=== PATIENT | male | born 2000 | race Caucasian/White ===

== ENCOUNTER 2020-07-22 18:52 | Emergency (ER) | payer OTHER ==
[~2020-07-22] VITALS: Ht 177.8 cm; Wt 59.0 kg
[2020-07-22 18:58] VITALS: BP 125/71
--- NOTE | 2020-07-22 19:02 | NUR ---
PATIENT AMBULATED TO [facility].
[2020-07-22] MEDS ORDERED: LIDOCAINE MPF 1% 5 ML ONE (19:11)
[2020-07-22] MEDS ORDERED: BACITRACIN OINT 500 UNITS/GM PKT TP ONE ×2 (19:46→19:50)
--- NOTE | 2020-07-22 20:30 | NUR ---
PT ASSESSMENT COMPLETED BY MILTON CUELLO , NO NURSING INTERVENTIONS NEEDED AT THIS TIME.
--- NOTE | 2020-07-22 20:35 | NUR ---
SPLINT AND WOUND CARE ADMINISTERED BY EMT.
[2020-07-22 20:43] VITALS: BP 125/71
--- NOTE | 2020-07-22 20:43 | NUR ---
Patient discharged with v/s stable. Written and verbal after care instructions given and explained. Patient alert, oriented and verbalized understanding of instructions. Ambulatory with steady gait. All questions addressed prior to discharge. ID band removed. Patient advised to follow up with PMD. Rx of IBUPROFEN & BACITRACIN given. Patient educated on indication of medication including possible reaction and side effects. Opportunity to ask questions provided and answered.
== END 2020-07-22 20:43 | disposition home or self-care (01) ==
LOC: MED 18:52
DX: S61.215A Laceration without foreign body of left ring finger without damage to nail, initial encounter (principal); S60.411A Abrasion of left index finger, initial encounter; X58.XXXA Exposure to other specified factors, initial encounter; Y93.89 Activity, other specified; Y92.89 Other specified places as the place of occurrence of the external cause; Y99.8 Other external cause status
CPT/HCPCS: 12001; 99283; J2001

== ENCOUNTER 2020-07-24 10:07 | Emergency (ER) | payer OTHER ==
[~2020-07-24] VITALS: Ht 177.8 cm; Wt 59.0 kg
[2020-07-24 10:09] VITALS: BP 127/74
--- NOTE | 2020-07-24 10:13 | NUR ---
Patient ambulated to bed 2. RN evaluating patient at bedside.
--- NOTE | 2020-07-24 10:24 | NUR ---
19 YEAR OLD MALE PRESENTS TO ER FOR WOUND CHECK TO LEFT MIDDLE FINGER AFTER CUTTING IT WITH GLASS AND NEEDS SUTURE REMOVE. PT DENIES INCREASED PAIN OR FEVER. PT AOX4, BREATHING EVEN AND UNLABORED, SKIN WARM AND DRY. BED IN LOWEST POSITION, LOCKED, BED RAIL UPX1. PMH - DENIES ALLERGIES - NKA
--- NOTE | 2020-07-24 10:30 | NUR ---
Dr. Chaney is evaluating the patient at bedside.
[2020-07-24] MEDS ORDERED: BACITRACIN OINT 500 UNITS/GM PKT TP ONE (12:05)
[2020-07-24 12:15] VITALS: BP 127/74
--- NOTE | 2020-07-24 12:16 | NUR ---
Patient discharged with v/s stable. Written and verbal after care instructions about wound check given and explained. Patient verbalized understanding. Ambulatory with steady gait. All questions addressed prior to discharge. Advised to follow up with PMD.
== END 2020-07-24 12:16 | disposition home or self-care (01) ==
LOC: MED 10:07
DX: S61.213D Laceration without foreign body of left middle finger without damage to nail, subsequent encounter (principal); X58.XXXD Exposure to other specified factors, subsequent encounter
CPT/HCPCS: 99282

== ENCOUNTER 2020-07-31 09:13 | Emergency (ER) | payer OTHER ==
[~2020-07-31] VITALS: Ht 177.8 cm; Wt 75.3 kg
[2020-07-31 09:21] VITALS: BP 118/67
--- NOTE | 2020-07-31 09:22 | NUR ---
Patient ambulated to chair A. RN evaluating patient.
--- NOTE | 2020-07-31 09:28 | NUR ---
Dr. Merchant is evaluating the patient in chair A.
--- NOTE | 2020-07-31 09:54 | NUR ---
applied dressing to left 4th digit without any issues
--- NOTE | 2020-07-31 10:03 | NUR ---
Patient discharged with v/s stable. Written and verbal after care instructions given and explained. Patient verbalized understanding. Ambulatory with steady gait. All questions addressed prior to discharge. Advised to follow up with PMD. No nursing care provided in our ER.
== END 2020-07-31 10:03 | disposition home or self-care (01) ==
LOC: MED 09:13
DX: S61.215D Laceration without foreign body of left ring finger without damage to nail, subsequent encounter (principal); X58.XXXD Exposure to other specified factors, subsequent encounter
CPT/HCPCS: 99281